=== PATIENT | female | born 1970 | race Caucasian/White ===

== ENCOUNTER 2019-10-29 05:58 | Emergency (ER) | payer MEDICARE ==
[~2019-10-29] VITALS: Ht 154.9 cm; Wt 75.7 kg
[2019-10-29 06:03] VITALS: BP 149/105
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
--- NOTE | 2019-10-29 06:51 | NUR ---
SBAR RECEIVED FROM GREGORY MURRAY AT PATIENT BEDSIDE.
--- NOTE | 2019-10-29 07:38 | NUR ---
Patient given discharge instructions and they have confirmed that they understand the instructions, patient called [facility] and will wait in lobby to speak with [facility]. Patient ambulatory with steady gait.
== END 2019-10-29 07:38 | disposition home or self-care (01) ==
LOC: ED 07:20
DX: T74.21XA Adult sexual abuse, confirmed, initial encounter (principal); F17.200 Nicotine dependence, unspecified, uncomplicated; R00.0 Tachycardia, unspecified; R10.2 Pelvic and perineal pain; X99.8XXA Assault by other sharp object, initial encounter; Y92.89 Other specified places as the place of occurrence of the external cause; Y92.59 Other trade areas as the place of occurrence of the external cause; Y99.8 Other external cause status
CPT/HCPCS: 93005; 99283